=== PATIENT | female | born 1980 | race Caucasian/White ===

== ENCOUNTER 2021-01-01 17:43 | Inpatient (IN) | payer OTHER ==
[2021-01-01 18:29] VITALS: BMI 23.4
[2021-01-01] MEDS ORDERED: MAG HYDROX/AL HYDROX/SIMETH 30 ML UNIT-DOSE CUP PO PRN (19:09)
[2021-01-01] MEDS ORDERED: ACETAMINOPHEN 325 MG TABLET (FP) PO PRN (19:09)
[2021-01-01] MEDS ORDERED: MAGNESIUM CITRATE 300 ML BOTTLE PO PRN (19:09)
[2021-01-01] MEDS ORDERED: MAGNESIUM HYDROX 2400MG/30ML ORAL SUSPENSION 30 ML CUP PO PRN (19:09)
[2021-01-01] MEDS ORDERED: MENTHOL/PHENOL 1 EACH UD MM PRN (19:09)
[2021-01-01] MEDS ORDERED: chlordiazePOXIDE HCL 25 MG CAPSULE PO PRN (19:09)
[2021-01-01] MEDS ORDERED: NICOTINE POLACRILEX 2 MG GUM BUC PRN (19:09)
[2021-01-01] MEDS ORDERED: BISMUTH SUBSALICYLATE 524 MG/30 ML UD PO PRN (19:09)
[2021-01-01] MEDS ORDERED: IBUPROFEN 400 MG TABLET (FP) PO PRN (19:09)
[2021-01-01] MEDS ORDERED: cloNIDine HCL 0.1 MG TABLET PO PRN (19:22)
[2021-01-01] MEDS ORDERED: METHADONE HCL 10 MG TABLET (FOR DETOX USE ONLY) PO ONE (19:22)
[2021-01-01] MEDS: NICOTINE 14 MG/24 HOURS TOPICAL PATCH TD SCH (19:55)
[2021-01-01] MEDS ORDERED: MELATONIN 5 MG TABLETS PO SCH (22:00)
[2021-01-01] MEDS: THIAMINE HCL 100 MG TABLET (FP) PO SCH (22:09)
[2021-01-01] MEDS: METHOCARBAMOL 500 MG TABLET PO PRN (22:11)
[2021-01-01] MEDS: chlordiazePOXIDE HCL 25 MG CAPSULE PO SCH (22:11)
[2021-01-02] MEDS: chlordiazePOXIDE HCL 25 MG CAPSULE PO SCH (05:26)
[2021-01-02] MEDS: METHOCARBAMOL 500 MG TABLET PO PRN ×2 (05:29→22:18)
[2021-01-02] MEDS: ACETAMINOPHEN 325 MG TABLET (FP) PO PRN (06:48)
[2021-01-02] MEDS ORDERED: METHADONE HCL 5 MG TABLET (FOR DETOX USE ONLY) ONE ×2 (08:25→09:45)
[2021-01-02] MEDS ORDERED: METHADONE HCL 10 MG TABLET (FOR DETOX USE ONLY) ONE ×2 (08:25→09:45)
[2021-01-02] MEDS ORDERED: METHADONE (DETOX) 20 MG, METHADONE (DETOX) 5 MG PO ONE (10:00)
[2021-01-02] MEDS: diazePAM 5 MG TABLET PO SCH ×3 (10:09→22:19)
[2021-01-02] MEDS: NICOTINE 14 MG/24 HOURS TOPICAL PATCH TD SCH (10:09)
[2021-01-02] MEDS: PRENATAL VITAMINS W/ FOLIC ACID TABLET (FP) PO SCH (10:10)
[2021-01-02 10:33] LABS: HEMATOCRIT 37.6 % (32.4-45.2); HEMOGLOBIN 12.3 GM/dL (10.7-15.3); MCH 27.8 pg (25.7-33.7); MCHC 32.7 g/dl (32.0-36.0); MEAN CELL VOLUME 84.8 fl (80-96); MEAN PLT VOLUME 8.9 fl (7.5-11.1); PLATELET COUNT 250 K/MM3 (134-434); RBC 4.43 M/mm3 (3.60-5.2); RDW 15.2 % (11.6-15.6); WHITE BLOOD COUNT 5.3 K/mm3 (4.0-10.0)
[2021-01-02 10:34] LABS: POTASSIUM 4.3 mmol/L (3.5-5.1)
[2021-01-02 10:43] LABS: ALBUMIN 3.7 g/dl (3.4-5.0); BLOOD UREA NITROGEN 10.6 mg/dL (7-18); CALCIUM 9.2 mg/dL (8.5-10.1)
[2021-01-02 10:45] LABS: BILIRUBIN,TOTAL 0.4 mg/dL (0.2-1)
[2021-01-02 10:46] LABS: CREATININE 0.6 mg/dL (0.55-1.3)
[2021-01-02 10:48] LABS: TOT PROT 6.7 g/dl (6.4-8.2)
[2021-01-02] MEDS: diazePAM 5 MG TABLET PO PRN ×2 (12:36→19:34)
[2021-01-02] MEDS: MELATONIN 5 MG TABLETS PO PRN (22:18)
[2021-01-02] MEDS: THIAMINE HCL 100 MG TABLET (FP) PO SCH (22:19)
[2021-01-03] MEDS ORDERED: chlordiazePOXIDE HCL 25 MG CAPSULE PO SCH (05:00)
[2021-01-03] MEDS: diazePAM 5 MG TABLET PO SCH ×4 (05:13→22:09)
[2021-01-03] MEDS: METHOCARBAMOL 500 MG TABLET PO PRN ×2 (05:14→18:35)
[2021-01-03] MEDS: diazePAM 5 MG TABLET PO PRN (07:26)
[2021-01-03] MEDS: hydrOXYzine PAMOATE 25 MG CAPSULE (FP) PO PRN ×3 (08:52→22:07)
[2021-01-03] MEDS: LIDOCAINE 5% TOPICAL PATCH TP SCH (09:58)
[2021-01-03] MEDS: NICOTINE 14 MG/24 HOURS TOPICAL PATCH TD SCH (09:59)
[2021-01-03] MEDS: PRENATAL VITAMINS W/ FOLIC ACID TABLET (FP) PO SCH (09:59)
[2021-01-03] MEDS ORDERED: METHADONE HCL 10 MG TABLET (FOR DETOX USE ONLY) PO ONE (10:00)
[2021-01-03] MEDS: MELATONIN 5 MG TABLETS PO PRN (22:08)
[2021-01-03] MEDS: THIAMINE HCL 100 MG TABLET (FP) PO SCH (22:08)
[2021-01-03] MEDS: LIDOCAINE PATCH REMOVAL MC SCH (22:09)
[2021-01-04] MEDS ORDERED: chlordiazePOXIDE HCL 10 MG CAPSULE PO PRN
[2021-01-04] MEDS: METHOCARBAMOL 500 MG TABLET PO PRN ×3 (00:34→15:25)
[2021-01-04] MEDS ORDERED: chlordiazePOXIDE HCL 10 MG CAPSULE PO SCH (05:00)
[2021-01-04] MEDS: diazePAM 5 MG TABLET PO SCH ×3 (05:55→22:16)
[2021-01-04 07:08] LABS: SARS-CoV-2 NAA Not Detected (Not Detected)
[2021-01-04] MEDS: diazePAM 5 MG TABLET PO PRN ×3 (08:55→18:40)
[2021-01-04] MEDS ORDERED: METHADONE HCL 5 MG TABLET (FOR DETOX USE ONLY) ONE (09:19)
[2021-01-04] MEDS ORDERED: METHADONE HCL 10 MG TABLET (FOR DETOX USE ONLY) ONE (09:19)
[2021-01-04] MEDS ORDERED: METHADONE (DETOX) 10 MG, METHADONE (DETOX) 5 MG PO ONE (10:00)
[2021-01-04] MEDS: LIDOCAINE 5% TOPICAL PATCH TP SCH (10:35)
[2021-01-04] MEDS: PRENATAL VITAMINS W/ FOLIC ACID TABLET (FP) PO SCH (10:35)
[2021-01-04] MEDS: NICOTINE 14 MG/24 HOURS TOPICAL PATCH TD SCH (10:35)
[2021-01-04] MEDS: ACETAMINOPHEN 325 MG TABLET (FP) PO PRN (16:55)
[2021-01-04] MEDS: hydrOXYzine PAMOATE 25 MG CAPSULE (FP) PO PRN ×2 (16:55→22:16)
[2021-01-04] MEDS: THIAMINE HCL 100 MG TABLET (FP) PO SCH (22:16)
[2021-01-04] MEDS: MELATONIN 5 MG TABLETS PO PRN (22:17)
[2021-01-04] MEDS: LIDOCAINE PATCH REMOVAL MC SCH (22:19)
[2021-01-05] MEDS: ACETAMINOPHEN 325 MG TABLET (FP) PO PRN (03:25)
[2021-01-05] MEDS: METHOCARBAMOL 500 MG TABLET PO PRN ×3 (03:26→22:09)
[2021-01-05] MEDS: hydrOXYzine PAMOATE 25 MG CAPSULE (FP) PO PRN ×3 (03:28→22:09)
[2021-01-05] MEDS ORDERED: chlordiazePOXIDE HCL 10 MG CAPSULE PO SCH (05:00)
[2021-01-05] MEDS: diazePAM 5 MG TABLET PO SCH ×2 (06:09→18:28)
[2021-01-05] MEDS: diazePAM 5 MG TABLET PO PRN (08:53)
[2021-01-05] MEDS ORDERED: METHADONE HCL 10 MG TABLET (FOR DETOX USE ONLY) PO ONE (10:00)
[2021-01-05] MEDS: LIDOCAINE 5% TOPICAL PATCH TP SCH (10:29)
[2021-01-05] MEDS: PRENATAL VITAMINS W/ FOLIC ACID TABLET (FP) PO SCH (10:30)
[2021-01-05] MEDS: NICOTINE 14 MG/24 HOURS TOPICAL PATCH TD SCH (10:30)
[2021-01-05] MEDS: ONDANSETRON *ODT* 4 MG TABLET SL PRN ×2 (13:22→21:39)
[2021-01-05] MEDS ORDERED: TRIMETHOBENZAMIDE HCL 200MG/2ML INJ IM ONE (16:49)
[2021-01-05] MEDS: MELATONIN 5 MG TABLETS PO PRN (22:09)
[2021-01-05] MEDS: THIAMINE HCL 100 MG TABLET (FP) PO SCH (23:46)
[2021-01-05] MEDS: LIDOCAINE PATCH REMOVAL MC SCH (23:46)
[2021-01-06] MEDS: ACETAMINOPHEN 325 MG TABLET (FP) PO PRN (03:00)
[2021-01-06] MEDS ORDERED: chlordiazePOXIDE HCL 10 MG CAPSULE PO ONE (05:00)
[2021-01-06] MEDS: METHOCARBAMOL 500 MG TABLET PO PRN (05:58)
[2021-01-06] MEDS ORDERED: METHADONE HCL 5 MG TABLET (FOR DETOX USE ONLY) PO ONE (06:00)
[2021-01-06] MEDS ORDERED: diazePAM 5 MG TABLET PO ONE (06:00)
[2021-01-06 07:51] VITALS: BP 126/95; PULSE 85; TEMP 126
== END 2021-01-06 09:27 | disposition home or self-care (01) | DRG 773 ==
LOC: YASAS 17:43 → Y3N 18:47 → UNDOADMIN 18:47 → Y3N 18:55 → Y6N 01-02 09:12
PROVIDERS: ADMIT Allergy & Immunology; ATTEND Allergy & Immunology
PROC: HZ2ZZZZ Detoxification Services for Substance Abuse Treatment (ICD-10-PCS; principal; 2021-01-01)
DX: F10.230 Alcohol dependence with withdrawal, uncomplicated (principal); F11.23 Opioid dependence with withdrawal; F14.10 Cocaine abuse, uncomplicated; F12.20 Cannabis dependence, uncomplicated; F17.210 Nicotine dependence, cigarettes, uncomplicated; F19.282 Other psychoactive substance dependence with psychoactive substance-induced sleep disorder; F19.280 Other psychoactive substance dependence with psychoactive substance-induced anxiety disorder; F19.24 Other psychoactive substance dependence with psychoactive substance-induced mood disorder; Z87.09 Personal history of other diseases of the respiratory system; Z88.0 Allergy status to penicillin
CPT/HCPCS: 36415; 80053; 81025; 85027; 86780; 93005; 93010; C9803; J0735; Q0162; U0003; U0005